=== PATIENT | male | born 2000 ===

== ENCOUNTER 2023-11-26 19:23 | Outpatient (REF) | payer MEDICAID, SELFPAY ==
[2023-11-26 21:25] LABS: HCT 43.1 % (40.0-50.0); MCH 27.3 pg (27.0-33.0); MCHC 32.5 % (32.0-36.0); MCV 84 fL (80-95); MPV 11.4 fL (8.0-11.0); Platelet Count 291 10^3/uL (130-400); RBC 5.12 10^6/uL (4.36-5.78); RDW 12.9 % (11.8-14.1); RDW-SD 39.7 fL; WBC 6.12 10^3/uL (4.4-10.8)
[2023-11-26 21:57] LABS: ALT 24 U/L (16-63); AST 15 U/L (15-37); Albumin 4.3 g/dL (3.4-5.0); Alkaline Phosphatase 80 U/L (46-116); Anion Gap 6.4 mmol/L (3-11); BUN 16 mg/dL (7-18); Bilirubin, Total 0.66 mg/dL (0.2-1.0); CO2 31.6 mmol/L (21.0-32.0); Calcium 9.3 mg/dL (8.5-10.1); Chloride 104 mmol/L (98-107); Estimated GFR 108.46 (mL/min/1.73m2); Glucose 104 mg/dL (74-106); Magnesium 1.9 mg/dL (1.8-2.4); Potassium 4.1 mmol/L (3.5-5.1); Sodium 142 mmol/L (136-145); TSH (W/Ref FT4) 1.23 uIU/mL (0.36-3.74); Total Protein 7.5 g/dL (6.4-8.2); Vitamin D 25 Total 13.8 ng/mL (30-100)
== END 2023-11-26 19:24 | disposition home or self-care (01) ==
LOC: NCHCN 19:23
PROVIDERS: Visit Provider Family Medicine
DX: R53.83 Other fatigue (principal); R20.2 Paresthesia of skin; E55.9 Vitamin D deficiency, unspecified; Z86.2 Personal history of diseases of the blood and blood-forming organs and certain disorders involving the immune mechanism
CPT/HCPCS: 80053; 82306; 85027; 83735; 84443